=== PATIENT | male | born 1990 | race Caucasian/White ===

== ENCOUNTER 2016-11-30 15:21 | Emergency (ER) | payer OTHER ==
[~2016-11-30] VITALS: Ht 170.2 cm; Wt 71.8 kg
[~2016-11-30 15:21] MED LIST: NO HOME MEDICATIONS; PERCOCET 5/31 TABLET PO
[2016-11-30] MEDS ORDERED: LAMOTRIGINE150 MG PO (16:12)
[2016-11-30 16:37] LABS: ADD MIUA? YES; BILIRUBIN NEGATIVE; BLOOD NEGATIVE; COLOR YELLOW ((YELLOW)); GLUCOSE (STRIP) NEGATIVE; KETONES TRACE; LEUKOCYTES SMALL; NITRITE NEGATIVE; PROTEIN (STRIP) TRACE; SPECIFIC GRAVITY 1.027 (1.000-1.030)
[2016-11-30 16:50] VITALS: BP 128/59
[2016-11-30 16:57] LABS: EPITHELIAL CELLS 1+; RED BLOOD CELLS 0-5 /HPF (0-5); WHITE BLOOD CELLS 15-20 /HPF (0-5)
[2016-11-30 16:58] LABS: BACTERIA RARE; CASTS NONE SEEN /LPF; CRYSTALS NONE SEEN; MUCUS RARE; UCUL ADDED? NO
[2016-12-03 13:44] LABS: CHLAMYDIA TRACHOMATIS NEGATIVE; NEISSERIA GONORRHOEAE NEGATIVE
== END 2016-11-30 16:49 | disposition home or self-care (01) ==
LOC: EME 15:21
PROVIDERS: Physician Assistant
DX: A64 Unspecified sexually transmitted disease (principal); R30.0 Dysuria; F17.200 Nicotine dependence, unspecified, uncomplicated
CPT/HCPCS: 81003; 87491; 87591; 99281; 99284; J0696

== ENCOUNTER 2017-10-17 16:37 | Emergency (ER) | payer OTHER ==
[~2017-10-17] VITALS: Ht 172.7 cm; Wt 67.9 kg
[~2017-10-17 16:37] MED LIST changes: +LAMOTRIGINE150 MG PO
[2017-10-17 16:39] VITALS: BP 145/80
[2017-10-17 17:30] LABS: EOSINOPHIL (%) 1.3 % (0-5); EOSINOPHIL COUNT 0.1 K/uL (0-0.3); HEMATOCRIT 46.3 % (38.0-50.0); IMMATURE GRANULOCYTE (%) 0.4 % (0.0-0.7); MCH 30.3 PG (29.0-34.0); MCHC 34.8 G/DL (30.0-36.0); MEAN PLAT.VOLUME 11.9 uM^3 (9.0-12.4); MONOCYTE (%) 6.1 % (3-12); MONOCYTE COUNT 0.3 K/uL (0-0.8); NEUTROPHIL (%) 73.8 % (45-76); PLATELET COUNT 152 K/uL (156-360); RBC DIS.WIDTH-CV 12.7 % (11.8-14.6); RBC DIS.WIDTH-SD 40.2 % (39-53); RED BLOOD COUNT 5.32 M/uL (4.00-5.50); WHITE BLOOD COUNT 5.4 K/uL (4.1-10.2)
[2017-10-17 17:38] LABS: CHLORIDE 105 mEq/L (99-109); POTASSIUM 3.8 mEq/L (3.7-5.4); SODIUM 139 mEq/L (136-147)
[2017-10-17 17:40] LABS: GLUCOSE 90 mg/dL (70-99)
[2017-10-17 17:41] LABS: ANION GAP 9 MEQ/L (2-14)
[2017-10-17 17:42] LABS: TOTAL BILIRUBIN 0.6 mg/dL (0.0-1.0)
[2017-10-17 17:44] LABS: ALKALINE PHOSPHATASE 63 IU/L (3-129); GFR ESTIMATE (CALCULATED) > 59 mL/min/
[2017-10-17 17:45] LABS: UREA NITROGEN (BUN) 20 mg/dL (9-23)
[2017-10-17 17:47] LABS: LIPASE 14 U/L (1.0-51.0)
== END 2017-10-17 18:08 | disposition left against medical advice (07) ==
LOC: EME 16:37
PROVIDERS: Physician Assistant Medical
DX: R10.12 Left upper quadrant pain (principal); G89.29 Other chronic pain; F17.200 Nicotine dependence, unspecified, uncomplicated
CPT/HCPCS: 80053; 81003; 83690; 85025; 99281; 99283